=== PATIENT | male | born 1955 | race Caucasian/White ===

== ENCOUNTER 2018-10-30 10:12 | Outpatient (CLI) | payer OTHER ==
[~2018-10-30] VITALS: Ht 175.3 cm; Wt 109.1 kg
--- NOTE | ~2018-10-30 | HEMODYNAMI ---
PATIENT:LISA MURPHY MEDICAL RECORD: [id number] : 57 LOCATION:DGamalielCAT ADMISSION DATE: 10/30/18 Generatedon:10/30/201812:20 Patient name: LISA MURPHY Patient #: [id number] SSN: : 1955 Date of study: 10/30/2018 Page: Of Hemodynamic Procedure Report Patient Data Patient Demographics Procedure consent was obtained First Name: LISA Gender: Male Last Name: KATHERINE : 1955 [facility] Initial: W Age: 63 year(s) Patient #: [id number] Race: Additional ID: [id number] Contact details [address]: [address] [place] [address] State: [place] City: [place] Zip code: [address] Past Medical History Allergies: No known allergies Admission Admission Data Admission Date: 10/30/2018 Admission Time: 10:12 Lab Results Lab Result Date: 10/30/2018 Lab Result Time: 10:45 Biochemistry Name Units Result Min Max BUN mg/dl 18 --(---*)-- 7 18 Creatinine mg/dl 0.9 --(-*--)-- 0.6 1.3 CBC Name Units Result Min Max Hematocrit % 44.9 --(*---)-- 42 54 Hemoglobin g/dl 15.9 --(--*-)-- 13.5 17.5 Procedure Procedure Types Cath Procedure Diagnostic Procedure Cardioversion External Procedure Description Procedure Date Procedure Date: 10/30/2018 Procedure Start Time: 12:06 Procedure End Time: 12:13 Procedure Staff Name Function Tejas Sharif RN Nurse Myron Raymond MD Additional personnel Lisa Rubio MD Performing Physician Gerson Begum RT Monitor Procedure Data Cath Procedure Fluoroscopy Diagnostic fluoroscopy Total fluoroscopy Time: 0 time: 0 min min Diagnostic fluoroscopy Total fluoroscopy dose: 0 dose: 0 mGy mGy Contrast Material Contrast Material Type Amount (ml) Isovue 370 0 Estimated blood loss: 0 ml Procedure Complications No complications Procedure Medications Medication Administration Route Dosage Oxygen etCO2 Nasal cannula 2 l/min 0.9% NaCl I.V. 100 ml/hr Refer to Anesthesia Notes for Sedation Medications Hemodynamics Rest HGB: 15.9 (g/dl) Heart Rate: 64 (bpm) Snapshots Pre Cath Intra NCS Post Cath Vital Signs Time Heart Resp SPO2 etCO2 NIBP Rhythm Pain Sedation Rate (ipm) (%) (mmHg) (mmHg) Status Level (bpm) 12:02:57 71 11 96 0 Measuring NSR (Missing) 10(A) 12:03:03 68 10 97 0 122/80(96) NSR (Missing) 10(A) 12:08:02 70 10 98 0 Measuring NSR (Missing) 10(A) 12:08:56 52 7 97 0 110/53(90) NSR (Missing) 10(A) 12:19:06 50 14 97 0 104/70(79) NSR (Missing) 10(A) Medications Time Medication Route Dose Verified Delivered Reason Notes Effective ness by by 12:04:55 Oxygen etCO2 2 Lisa Lazaro Per Nasal l/min Ramiro Sharif RN physician cannula 12:05:23 0.9% NaCl I.V. 100 Lisa Tejas Per ml/hr Ramiro Sharif RN physician 12:05:46 Refer to Lisa Lazaro used for Anesthesia Ramiro Sharif RN procedure Notes for Sedation Medications Procedure Log Time Note 11:49:27 Tejas Sharif RN sent for patient. Start room use. 11:49:43 Time tracking: Regular hours (M-F 7:00 - 5:00) 11:49:48 Plan of Care:Hemodynamics will remain stable., Cardiac rhythm will remain stable., Comfort level will be maintained., Respiratory function will remain adequate., Patient/ family verbilizes understanding of procedure., Procedure tolerated without complication., Recovers from procedure without complications.. 11:57:32 Signed procedure consent form obtained from patient. 11:57:38 Patient arrived from Pre/Post Procedure Room to CCL 1. Patient remains on bed/stretcher for procedure. 11:57:41 Correct patient and procedure confirmed by team. 11:57:41 Warm blankets applied, and fang hugger turned on for patient comfort. 11:57:42 ECG and BP/O2 sat monitors applied to patient. 12:00:08 Myron Raymond MD present and monitoring patient for TIVA. 12:01:09 Vital chart was started 12:01:53 Baseline sample Acquired. 12:01:59 Rhythm: atrial fibrillation 12:02:00 Full Disclosure recording started 12:02:10 H&P Date Dictated: 10/13/2018 Within 30 days and on chart., H&P Addendum completed by physician on day of procedure. (MUST COMPLETE FOR ALL OUTPATIENTS). 12:02:11 Pre-procedure instructions explained to patient. 12:02:13 Pre-op teaching completed and patient verbalized understanding. 12:02:14 Family in waiting room. 12:02:17 Patient NPO since Midnight. 12:02:24 Patient allergic to No known allergies 12:02:26 Is the patient allergic to Iodine/contrast media? No. 12:02:27 Is patient on blood thinner?Yes 12:02:30 ACC The patient was administered the following blood thiners within the last 24 hours: Eliquis 12:02:32 Patient diabetic? Yes. 12:02:33 If diabetic: On Metformin? No 12:02:35 Previous problem with sedation/anesthesia? No ? 12:02:37 Snore? Yes 12:02:38 Sleep apnea? No 12:02:40 Opens mouth fully? Yes 12:02:40 Deviated septum? No 12:02:41 Sticks out tongue? Yes 12:02:42 Airway obstruction? No ? 12:02:44 Dentures? No ? 12:02:46 Patient pain scale 0/10 ?. 12:02:49 IV patent on arrival in left forearm with 0.9% NaCl at [facility]. 12:04:33 Lab Result : Hemoglobin 15.9 g/dl 12:04:33 Lab Result : Hematocrit 44.9 % 12:04:33 Lab Result : BUN 18 mg/dl 12:04:33 Lab Result : Creatinine 0.9 mg/dl 12:04:55 Oxygen 2 l/min etCO2 Nasal cannula was administered by Tejas Sharif RN; Per physician; 12:05:23 0.9% NaCl 100 ml/hr I.V. was administered by Tejas Sharif RN; Per physician; 12:05:46 Refer to Anesthesia Notes for Sedation Medications was administered by Tejas Sharif RN; used for procedure; 12:05:55 Lab results completed and on chart. 12:06:02 Quick Combo opened to sterile field. 12:06:29 --------ALL STOP TIME OUT------ 12:06:29 Physician arrived 12:06:30 Final Timeout: patient, procedure, and site verified with staff and physician. All members of the team are in agreement. 12:06:31 Physical assessment completed. ASA score P 3 - A patient with severe systemic disease as per Lisa Rubio MD. 12:06:34 Fire Safety Assessment: C--Open oxygen or nitrous oxide is being used. 12:06:38 Sedation plan: TIVA Medication:Propofol 12:06:44 Procedure started. 12:06:46 Quick combo pads placed on patients chest and back. 12:08:07 Defibrillator synced and charged to 275 Joules. 12:08:30 Shock delivered. 12:08:49 Patient cardioverted to sinus bradycardia. 12:08:54 Procedure ended.(Physican Out) 12:09:59 Fluoroscopy time 00.00 minutes. 12:10:00 Fluoroscopy dose: 0 mGy 12:10:00 Flurop Dose total: 0 12:10:09 Contrast amount:Isovue 370 0ml. 12:10:13 Post Procedure Pulses reassessed and unchanged 12:10:24 Post-procedure physical assessment completed. ASA score P 3 - A patient with severe systemic disease as per Lisa Rbuio MD. 12:11:44 Post procedure rhythm: sinus bradycardia 12:11:48 Estimated blood loss: 0 ml 12:12:13 Post procedure instruction explained to patient.Patient verbalizes understanding. 12:12:14 Patient needs reinforcement of post procedure teaching. 12:13:14 Procedure and supply charges have been captured, reviewed, submitted and are correct. 12:13:16 Procedure Complication : No complications 12:13:19 Vital chart was stopped 12:13:43 See physician's report for complete and final results. 12:13:45 Report given to Pre/Post Procedure Room. 12:13:47 Patient transfered to Pre/Post Procedure Room with Stretcher. 12:13:48 Full Disclosure recording stopped 12:13:48 Procedure ended. 12:13:52 End room use (Document Last) Device Usage Item Manufacture Quantity Catalog Hospital Part Current Minimal Lot# / Name Number Charge Number Stock Stock Dylan oh# Code [employer] 1 [id number] Combo Signature Audit [place] Stage Time Signature Unsigned Intra-Procedure 10/30/2018 Gerson Begum RT(R) 12:14:16 PM RT(R) 10/30/2018 12:16:54 PM Intra-Procedure 10/30/2018 Gerson Begum 12:20:39 PM RT(R) Signatures Nurse : Tejas Sharif RN Signature : Date : Time : Performing Physician : Signature : Lisa Rubio MD Date : Time : Monitor : Gerson Begum RT Signature : Date : Time : [address] [place] [address]
[2018-10-30] MEDS ORDERED: ELIQUIS5 MG PO (10:24)
[2018-10-30] MEDS ORDERED: BETAPACE 80 MG80 MG PO (10:25)
[2018-10-30] MEDS ORDERED: LISINOPRIL10 MG PO (10:25)
[2018-10-30] MEDS ORDERED: NEXIUM40 MG PO (10:26)
[2018-10-30] MEDS ORDERED: MOBIC7.5 MG PO (10:31)
[2018-10-30] MEDS ORDERED: LANAPROST (10:31)
[2018-10-30 10:50] VITALS: BP 124/78; Ht 175.3 cm; Wt 109.1 kg
[2018-10-30 10:54] LABS: BASOPHILS 0.6 % (0-2); EOSINOPHILS 2.1 % (0-7); HEMATOCRIT 44.9 % (42.0-54.0); HEMOGLOBIN 15.9 g/dL (13.5-17.5); IMMATURE GRANULOCYTES 0.2 % (0-5); LYMPHOCYTES 31.2 % (15-50); MCH 29.9 pg (26.0-34.0); MCHC 35.4 g/dL (31.0-37.0); MCV 84.6 fL (80.0-100.0); MEAN PLATELET VOLUME 10.6 fL (7.4-10.4); NEUTROPHILS 56.9 % (40-80); PLATELET COUNT 203 10x3/uL (130-400); RBC 5.31 10x6/uL (4.20-6.10); RDW 14.1 % (11.5-14.5); WBC 6.5 10x3/uL (4.8-10.8)
[2018-10-30 11:03] LABS: INR 1.15 (0.85-1.17); PROTIME 14.1 SECONDS (11.6-15.0)
[2018-10-30 11:04] LABS: CALC OSMOLALITY 273 mosm/kg (275-300); CALCIUM 8.7 mg/dL (8.5-10.1); CARBON DIOXIDE 26.3 mmol/L (21.0-32.0); CHLORIDE - SERUM 103 mmol/L (98-107); CREATININE - SERUM 0.9 mg/dL (0.6-1.3); GLUCOSE 105 mg/dL (74-106); POTASSIUM - SERUM 4.2 mmol/L (3.5-5.1); SODIUM 136 mmol/L (136-145); UREA NITROGEN 18 mg/dL (7-18); eGFR NON AFRICAN AMERICAN > 90 mL/min (90-120)
--- NOTE | 2018-10-30 12:25 | NUR ---
PATIENT ARRIVED TO ROOM 3, PLACED ON CM, VSS. WILL CONTINUE TO MONITOR.
--- NOTE | 2018-10-30 12:40 | NUR ---
PATIENT AWAKE, EATING SANDWICH, NO N/V. VSS ON ROOM AIR. PHYSICIAN AT BEDSIDE TO UPDATE PATIENT. SINUS JACQUE ON CM.
--- NOTE | 2018-10-30 13:10 | NUR ---
PATIENT AWAKE, VSS ON ROOM AIR. SINUS JACQUE ON CM. NO C/O PAIN, NUMBNESS, OR TINGLING. IV REMOVED. EDUCATION REGARDING DISCHARGE INSTRUCTIONS GIVEN TO PATIENT AND SPOUSE, BOTH VOICE UNDERSTANDING.
--- NOTE | 2018-10-30 13:30 | NUR ---
PATIENT TRANSPORTED VIA WHEELCHAIR TO CAR WITH SPOUSE DRIVING, ALL BELONGINGS WITH PATIENT.
--- NOTE | 2018-10-30 16:52 | OP ---
PATIENT NAME: LISA MURPHY MEDICAL RECORD: [id number] :57 LOCATION:D.CAT ADMISSION DATE: SURGEON: LISA MONTE MD DATE OF OPERATION: 10/30/2018 PROCEDURE: DC cardioversion. INDICATION: Atrial fibrillation. Continuous heart rate, O2 saturation, blood pressure monitoring all undertaken, all of which remained stable. IV conscious sedation was per anesthesia. He received 1 shock at 275 joules restoring sinus rhythm. OVERALL IMPRESSION: Successful DC cardioversion from atrial fibrillation to sinus rhythm. TRANSINT:[id number] Voice Confirmation ID: [id number] DOCUMENT ID: [id number] LIAS MONTE MD at 1652 CC: [id number] DICTATION DATE: 10/30/18 1209 ANIMAL CARE PROVIDER: 10/30/18 1257 DEP CLI 10/30/18 [facility] [address] [place] [address]
== END 2018-10-30 13:30 | disposition home or self-care (01) ==
LOC: D.CATH 10:12
PROVIDERS: ATTEND Internal Medicine Interventional Cardiology
DX: I48.91 Unspecified atrial fibrillation (principal); Z01.812 Encounter for preprocedural laboratory examination

== ENCOUNTER 2019-01-20 10:02 | Outpatient (CLI) | payer OTHER ==
[~2019-01-20] VITALS: Ht 175.3 cm; Wt 109.1 kg
--- NOTE | ~2019-01-20 | HEMODYNAMI ---
PATIENT:LISA MURPHY MEDICAL RECORD: [id number] : 57 LOCATION:D.CAT ADMISSION DATE: 01/20/19 Generatedon:01/21/20197:49 Patient name: LISA MURPHY Patient #: [id number] SSN: : 1955 Date of study: 01/20/2019 Page: Of Hemodynamic Procedure Report Patient Data Patient Demographics Procedure consent was obtained First Name: LISA Gender: Male Last Name: KATHERINE : 1955 Middle Initial: W Age: 63 year(s) Patient #: [id number] Race: Additional ID: [id number] Contact details Address: [address] [place] [address] State: [place] City: [place] Zip code: [address] Past Medical History Allergies: No known allergies Admission Admission Data Admission Date: 01/20/2019 Admission Time: 10:02 Arrival Date: 01/20/2019 Arrival Time: 12:30 Admit Source: Other Insurance Payor: Private health insurance Height (in.): 70 BSA: 2.28 (m2) Height (cm.): 177.8 BMI: 35.15 (kg/m2) Weight (lbs.): 245 Weight (kg.): 111.13 Lab Results Lab Result Date: 01/20/2019 Lab Result Time: 0:00 Biochemistry Name Units Result Min Max BUN mg/dl 23 --(----)-* 7 18 Creatinine mg/dl 1.2 --(---*)-- 0.6 1.3 eGFR ml/min 64.60906 *-(----)-- 90 120 NONAFRICAN CBC Name Units Result Min Max Hemoglobin g/dl 14 --(*---)-- 13.5 17.5 Procedure Procedure Types Cath Procedure Diagnostic Procedure Cardioversion External Procedure Description Procedure Date Procedure Date: 01/20/2019 Procedure Start Time: 11:48 Procedure End Time: 11:55 Procedure Staff Name Function Nisa Hummel RT Monitor Vladislav Bolaños MANAGER FREELANCE Additional personnel Lisa Rubio MD Performing Physician Daniel Kerns RN Nurse Indication Atrial fibrillation Procedure Data Cath Procedure Estimated blood loss: 0 ml Procedure Complications No complications Procedure Medications Medication Administration Route Dosage 0.9% NaCl I.V. 100 ml/hr Oxygen etCO2 Nasal cannula 5 l/min Refer to Anesthesia Notes for Sedation Medications Hemodynamics Rest HGB: 14 (g/dl) O2 Consumption: Estimated: 252.03 (ml/min) O2 Consumption indexed : Estimated:110.54 (ml/min/m) Heart Rate: 53 (bpm) Snapshots Pre Cath Intra NCS Post Cath Vital Signs Time Heart Resp SPO2 etCO2 NIBP (mmHg) Rhythm Pain Sedation Rate (ipm) (%) (mmHg) Status Level (bpm) 11:43:12 57 16 98 0 114/81(101) A-Flutter 0 (11) 10(A) , No pain 11:47:18 60 18 99 30.8 105/69(81) A-Flutter 0 (11) 10(A) , No pain 11:51:18 63 16 99 29.2 112/80(89) A-Flutter 0 (11) 10(A) , No pain 11:55:21 47 18 94 32.2 103/75(89) A-Flutter 0 (11) 8(A) , No pain 11:57:30 49 16 95 29 110/61(105) NSR 0 (11) 8(A) , No pain Medications Time Medication Route Dose Verified Delivered Reason Notes Effective ness by by 11:47:09 0.9% NaCl I.V. 100 Daniel Daniel Per ml/hr Saumya Kerns physician RN RN 11:47:20 Oxygen etCO2 5 Daniel Daniel for low Nasal l/min Saumya Kerns 02 sats cannula RN RN 11:49:33 Refer to Daniel Daniel for Anesthesia Saumya Kerns sedation Notes for RN RN Sedation Medications Procedure Log Time Note 11:23:40 Diagnostic Cath Status : Elective 11:24:07 Indication : Atrial fibrillation 11:24:21 Procedure Status Cardioversion. 11:24:25 Amara King RN sent for patient. Start room use. 11:24:27 Time tracking: Regular hours (M-F 7:00 - 5:00) 11:24:32 Plan of Care:Hemodynamics will remain stable., Cardiac rhythm will remain stable., Comfort level will be maintained., Respiratory function will remain adequate., Patient/ family verbilizes understanding of procedure., Procedure tolerated without complication., Recovers from procedure without complications.. 11:24:49 Admit Source: Other 11:24:51 Arrival Date: 01/20/2019 12:30:00 PM 11:25:04 Insurance Payor : Private health insurance 11:25:11 Patient Height : 70 inches 11:25:17 Patient Weight : 245 lbs 11:38:20 Patient received from Pre/Post Procedure Room to CCL 2 Alert and oriented. Tansferred to table in Supine position. 11:38:23 Signed procedure consent form obtained from patient. 11:38:24 Warm blankets applied, and fang hugger turned on for patient comfort. 11:38:25 Correct patient and procedure confirmed by team. 11:38:26 ECG and BP/O2 sat monitors applied to patient. 11:40:46 Lab Result : eGFR NONAFRICAN 64.95368 ml/min 11:40:46 Lab Result : Hemoglobin 14 g/dl 11:40:46 Lab Result : BUN 23 mg/dl 11:40:46 Lab Result : Creatinine 1.2 mg/dl 11:40:57 Full Disclosure recording started 11:41:01 H&P Date Dictated: 01/20/2019 Within 30 days and on chart., H&P Addendum completed by physician on day of procedure. (MUST COMPLETE FOR ALL OUTPATIENTS). 11:41:03 Pre-op teaching completed and patient verbalized understanding. 11:41:03 Pre-procedure instructions explained to patient. 11:41:05 Family in waiting room. 11:41:09 Patient NPO since Midnight. 11:41:12 Is the patient allergic to Iodine/contrast media? No. 11:41:13 Was the patient premedicated? No 11:41:16 Is patient on blood thinner?Yes 11:41:17 ACC The patient was administered the following blood thiners within the last 24 hours: Eliquis 11:42:12 Vital chart was started 11:42:20 Baseline sample Acquired. 11:42:24 Rhythm: atrial flutter 11:43:06 Patient diabetic? Yes. 11:43:07 If diabetic: On Metformin? No 11:43:10 Previous problem with sedation/anesthesia? No ? 11:43:11 Snore? Yes 11:43:48 Sleep apnea? No 11:43:49 Deviated septum? No 11:43:51 Opens mouth fully? Yes 11:43:52 Sticks out tongue? Yes 11:43:54 Airway obstruction? No ? 11:44:01 Dentures? No ? 11:44:23 IV patent on arrival in left forearm with 0.9% NaCl at [facility]. 11:44:26 Lab results completed and on chart. 11:44:31 Sharps counted by scrub and verified by R.N. 11:44:31 Alarms reviewed by R. N. 11:45:10 --------ALL STOP TIME OUT------ 11:45:32 Physician paged 11:47:09 0.9% NaCl 100 ml/hr I.V. was administered by Daniel Kerns RN; Per physician; Verbal order read back and verified. 11:47:20 Oxygen 5 l/min etCO2 Nasal cannula was administered by Daniel Kerns RN; for low 02 sats; Verbal order read back and verified. 11:48:09 Physician arrived 11:48:11 Final Timeout: patient, procedure, and site verified with staff and physician. All members of the team are in agreement. 11:48:17 Fire Safety Assessment: A--An alcohol-based skin anteseptic being used preoperatively., C--Open oxygen or nitrous oxide is being used., D--An ESU, laser, or fiber-optic light is being used. 11:48:21 Physical assessment completed. ASA score P 2 - A patient with mild systemic disease as per Lisa Rubio MD. 11:48:26 Sedation plan: TIVA Medication:Propofol 11:48:41 Procedure started. 11:48:50 Quick Combo opened to sterile field. 11:49:33 Refer to Anesthesia Notes for Sedation Medications was administered by Daniel Kerns RN; for sedation; Verbal order read back and verified. 11:52:20 Vladislav Bolaños CRNA present and monitoring patient for TIVA. 11:52:21 Quick combo pads placed on patients chest and back. 11:52:24 Defibrillator synced and charged to 275 Joules. 11:52:35 Shock delivered. 11:53:09 Unsuccessful cardioversion. 11:53:12 Defibrillator synced and charged to 360 Joules. 11:53:29 Shock delivered. 11:53:47 Patient cardioverted to sinus rhythm . 11:54:00 Procedure ended.(Physican Out) 11:54:17 Post procedure rhythm: sinus rhythm 11:54:20 Estimated blood loss: 0 ml 11:54:22 Post procedure instruction explained to patient.Patient verbalizes understanding. 11:54:24 Patient needs reinforcement of post procedure teaching. 11:54:49 Procedure and supply charges have been captured, reviewed, submitted and are correct. 11:54:54 Procedure Complication : No complications 11:55:03 Vital chart was stopped 11:55:04 Operative report dictated upon procedure completion. 11:55:05 See physician's report for complete and final results. 11:55:08 Report given to Pre/Post Procedure Room. 11:55:11 Patient transfered to Pre/Post Procedure Room with Stretcher. 11:55:13 Full Disclosure recording stopped 11:55:13 Procedure ended. 11:56:30 End room use (Document Last) Device Usage Item Manufacture Quantity Catalog Hospital Part Current Minimal Lot# / Name Number Charge Number Stock Stock Dylan al# Code [employer] 1 [id number] Combo Signature Audit [place] Stage Time Signature Unsigned Intra-Procedure 01/20/2019 Nisa Hummel 11:55:37 AM RT(R) Intra-Procedure 01/20/2019 Daniel 11:56:30 AM Saumya MARTINEZ Intra-Procedure 01/20/2019 Lisa Rubio 12:03:33 PM ; Nisa Hummel RT(R) Signatures Monitor : Nisa Hummel RT Signature : Date : Time : Performing Physician : Signature : Lisa Rubio MD Date : Time : Nurse : Daniel Lorigan Signature : RN Date : Time : [address] [place] [address]
[~2019-01-20 10:02] MED LIST: BETAPACE 80 MG80 MG PO; ELIQUIS5 MG PO; LANAPROST; LISINOPRIL10 MG PO; MOBIC7.5 MG PO; NEXIUM40 MG PO
[2019-01-20 10:37] VITALS: BP 140/59; Ht 175.3 cm; Wt 109.1 kg
[2019-01-20 10:51] LABS: BASOPHILS 0.3 % (0-2); EOSINOPHILS 1.9 % (0-7); HEMATOCRIT 41.4 % (42.0-54.0); IMMATURE GRANULOCYTES 0.3 % (0-5); LYMPHOCYTES 37.8 % (15-50); MCH 30.8 pg (26.0-34.0); MCHC 33.8 g/dL (31.0-37.0); MEAN PLATELET VOLUME 10.1 fL (7.4-10.4); MONOCYTES 8.5 % (2-11); NEUTROPHILS 51.2 % (40-80); PLATELET COUNT 197 10x3/uL (130-400); RBC 4.55 10x6/uL (4.20-6.10); RDW 13.6 % (11.5-14.5); WBC 5.8 10x3/uL (4.8-10.8)
[2019-01-20 11:00] LABS: ANION GAP 10.7 mmol/L (8-16); CALCIUM 8.8 mg/dL (8.5-10.1); CARBON DIOXIDE 29.1 mmol/L (21.0-32.0); CREATININE - SERUM 1.2 mg/dL (0.6-1.3); POTASSIUM - SERUM 4.8 mmol/L (3.5-5.1)
[2019-01-20 11:03] LABS: INR 1.11 (0.85-1.17); PROTIME 13.8 SECONDS (11.6-15.0)
--- NOTE | 2019-01-20 12:48 | NUR ---
1225 PT IS ALERT, SITTING UP IN BED, EATING SANDWICH AND VISITING WITH HIS . DENIES ANY C/O CHEST PAIN OR NAUSEA. SINUS JACQUE AT 47.
--- NOTE | 2019-01-20 12:51 | NUR ---
PT HAS TOLERATED 100% OF SANDWICH WITH NO C/O NAUSEA. SITTING UP IN BED, VISITING WITH AT BEDSIDE. DENIES NEEDS AT THIS TIME.
--- NOTE | 2019-01-20 12:53 | NUR ---
DR MONTE HAS ROUNDED ON PT. PT IS ALERT AND DENIES ANY C/O.
--- NOTE | 2019-01-20 13:15 | NUR ---
PT ALERT, DENIES ANY C/O. SITTING UP IN BED, WATCHING TV AND VISITING WITH . NSR, RATE IS 60, DENIES ANY C/O CHEST PAIN. CALL LIGHT IN REACH.
--- NOTE | 2019-01-20 13:40 | NUR ---
DC INSTRUCTIONS REVIEWED WITH PT AND WHO VERBALIZE UNDERSTANDING. PT IS ALERT AND DENIES ANY C/O. IV DC'D WITH CATH INTACT AND PT IS DRESSING FOR DC TO HOME.
--- NOTE | 2019-01-20 14:06 | NUR ---
1350 PT HAS AMBULATED TO THE BATHROOM AND VOIDED QS. PT IS ALERT AND DENIES ANY C/O. PT ESCORTED TO PRIVATE AUTO VIA WC WITH DRIVING HIM HOME. PT HAS DC INSTRUCTIONS AND ALL PERSONAL BELONGINGS AT TIME OF DISCHARGE.
--- NOTE | 2019-01-21 13:31 | OP ---
PATIENT NAME: LISA MURPHY MEDICAL RECORD: [id number] :57 LOCATION:D.CAT ADMISSION DATE: SURGEON: LISA MONTE MD DATE OF OPERATION: 01/20/2019 PROCEDURE: DC cardioversion. INDICATION: Atrial fibrillation. DESCRIPTION OF PROCEDURE: The patient received 1 shock at 275 joules restoring sinus rhythm. TRANSINT:[id number] Voice Confirmation ID: [id number] DOCUMENT ID: [id number] LISA MONTE MD at 1331 CC: [id number] DICTATION DATE: 01/20/19 1156 REAL ESTATE OFFICE MANAGER: 01/20/19 1243 DEP CLI 01/20/19 [address] [id number] [place] [address]
== END 2019-01-20 13:50 | disposition home or self-care (01) ==
LOC: D.CATH 10:02
PROVIDERS: ATTEND Internal Medicine Interventional Cardiology
DX: I48.91 Unspecified atrial fibrillation (principal); E78.5 Hyperlipidemia, unspecified; F17.200 Nicotine dependence, unspecified, uncomplicated; K21.9 Gastro-esophageal reflux disease without esophagitis; E66.9 Obesity, unspecified; I10 Essential (primary) hypertension